=== PATIENT | female | born 1990 | race African-American/Black ===

== ENCOUNTER 2016-07-06 21:34 | Emergency (ER) | payer MEDICAID ==
[~2016-07-06] VITALS: Ht 167.6 cm; Wt 112.0 kg
[2016-07-06 21:57] VITALS: BP 163/73
[2016-07-06] MEDS ORDERED: SODIUM CHLORIDE 0.9% 1,000 ML IV ONE (22:42)
[2016-07-06] MEDS ORDERED: ONDANSETRON HCL 4MG/2ML VIAL IV STA (22:42)
[2016-07-06 22:54] LABS: BASOPHILS % 0.7 % (0.0-2.0); EOSINOPHILS % 0.1 % (0.0-5.0); HEMATOCRIT. 37.1 % (36.0-48.0); HEMOGLOBIN. 12.4 g/dL (12.0-16.0); LYMPHOCYTES % 18.2 % (20.0-50.0); MEAN CORPUSCULAR HEMOGLOBIN 27.9 pg (28.0-32.0); MEAN CORPUSCULAR HGB CONC 33.4 g/dL (31.0-37.0); MEAN CORPUSCULAR VOLUME 83.4 fL (81.0-99.0); MEAN PLATELET VOLUME 9.5 fl (7.4-10.4); MONOCYTES % 9.5 % (2.0-8.0); NEUTROPHILS % 71.5 % (40.0-76.0); PLATELET 182 x1000/uL (130-400); RED BLOOD CELL COUNT 4.45 mill/uL (4.2-5.4); RED CELL DISTRIBUTION WIDTH 15.1 % (11.6-14.6); WHITE BLOOD COUNT 6.3 x1000/uL (4.5-11.0)
[2016-07-06 23:01] LABS: CHLORIDE 107 mEq/L (98-107); INDEX HEMOLYSI 1 (1-3); INDEX ICTERIC 1 (1-4); INDEX LIPEMIC 1 (1-3)
[2016-07-06 23:04] LABS: ALBUMIN 3.2 g/dL (3.4-5.0); ANION GAP 14; CALCIUM 8.3 mg/dL (8.5-10.1); CARBON DIOXIDE 23 mEq/L (21-32); UREA NITROGEN BLOOD 5 mg/dL (7-21)
[2016-07-06 23:07] LABS: ALANINE AMINOTRANSFERASE 20 IU/L (13-61)
[2016-07-06 23:09] LABS: eGFR > 60 mL/min (>60)
== END 2016-07-07 00:53 | disposition home or self-care (01) ==
LOC: ER 21:35
DX: O26.891 Other specified pregnancy related conditions, first trimester (principal); G24.09 Other drug induced dystonia; I10 Essential (primary) hypertension; R51 Headache; Z3A.12 12 weeks gestation of pregnancy; Z88.6 Allergy status to analgesic agent
CPT/HCPCS: 36415; 80053; 85025; 96361; 96374; 99284; J2405; J7030; Z7610